=== PATIENT | male | born 1970 | race Caucasian/White ===

== ENCOUNTER 2020-04-11 08:51 | Inpatient (IN) ==
[2020-04-11 09:26] LABS: ABS Lymphocytes 0.6 10^3/ul (1.0-4.8); ABS Monocytes 0.5 10^3/ul (0-0.8); ABS Neutrophils 9.7 10^3/ul (1.5-7.7); Eosinophil % 0.1 %; Hematocrit 27 % (42-52); Hemoglobin 9.2 g/dL (14.0-18.0); Lymphocyte % 5.7 %; Mean Corpuscular HGB Conc 34 g/dL (31-36); Mean Corpuscular Hemoglobin 29 pg (27-31); Mean Corpuscular Volume 85 fL (80-94); Mean Platelet Volume 6.7 fL (7.4-10.4); Platelet Count 426 10^3/uL (150-450); Red Cell Distribution Width 17 % (10-15); White Blood Count 10.8 10^3/uL (3.5-10.8)
[2020-04-11 09:42] LABS: Albumin/Globulin Ratio 0.9 (1-3); BUN/Creatinine Ratio 14.7 (8-20); EGFR African American 93.9 (>60); EGFR Non-African American 77.6 (>60); Globulin 3.3 g/dL (2-4); Potassium 3.9 mmol/L (3.5-5.0); Total Bilirubin 0.2 mg/dL (0.2-1.0); Total Protein 6.3 g/dL (6.4-8.9)
[2020-04-11 09:51] LABS: Urine Appearance Clear; Urine Bilirubin Negative (Negative); Urine Blood Negative (Negative); Urine Color Colorless; Urine Glucose 1+(50 mg/dL) (Negative); Urine Ketones Trace (Negative); Urine Nitrite Negative (Negative); Urine Protein Negative (Negative); Urine Specific Gravity 1.004 (1.010-1.030); Urine Urobilinogen Negative (Negative)
[2020-04-11] MEDS ORDERED: Zosyn per Pharmacy NOTE FOLLOW UP SCH (11:00)
[2020-04-11 11:14] LABS: Erythrocyte Sed Rate > 120 mm/Hr (0-14)
[2020-04-11] MEDS ORDERED: Piperacillin/Tazobac ADVAN 3.375 GM in NS 0.9% 100 ml BAG 100 ML IV ONE (12:00)
[2020-04-11 12:35] LABS: Activated Partial Thrombo Time 28.8 seconds (26.0-38.0); INR 1.01 (0.82-1.09)
[2020-04-11] MEDS ORDERED: Senna TAB 8.6 mg TAB PO PRN (14:59)
[2020-04-11] MEDS: ZOSYN 3.375 GM Q8H per EXTENDED INFUSION IV SCH (16:03)
[2020-04-11] MEDS: Enoxaparin 40 MG/0.4 ML SYR SUBCUT SCH (16:03)
[2020-04-11] MEDS ORDERED: Gadoteridol (CONTRAST) 279.3 MG/ML 10 ML IV ONE (17:48)
[2020-04-11] MEDS ORDERED: NS 0.9% 500 ml BAG 500 ML IV ONE (18:31)
[2020-04-11] MEDS: NS 0.9% 1000 ml BAG 1,000 ML IV SCH ×2 (18:37→21:35)
[2020-04-11] MEDS ORDERED: Thiamine 100 MG/ML 2 ml VIAL (200 mg) IV SCH (19:00)
[2020-04-11] MEDS: Thiamine IV 100 MG in NS 0.9% 50 ML Q24H IV SCH ×2 (21:40→23:54)
[2020-04-12] MEDS: ZOSYN 3.375 GM Q8H per EXTENDED INFUSION IV SCH ×3 (00:01→16:42)
[2020-04-12] MEDS: Thiamine IV 100 MG in NS 0.9% 50 ML Q24H IV SCH ×2 (03:53→08:58)
[2020-04-12 06:14] LABS: ABS Lymphocytes 0.3 10^3/ul (1.0-4.8); ABS Monocytes 0.2 10^3/ul (0-0.8); ABS Neutrophils 7.7 10^3/ul (1.5-7.7); Eosinophil % 0.1 %; Hematocrit 26 % (42-52); Hemoglobin 8.9 g/dL (14.0-18.0); Lymphocyte % 4.2 %; Mean Corpuscular HGB Conc 34 g/dL (31-36); Mean Corpuscular Hemoglobin 29 pg (27-31); Mean Corpuscular Volume 85 fL (80-94); Mean Platelet Volume 6.9 fL (7.4-10.4); Platelet Count 443 10^3/uL (150-450); Red Blood Count 3.11 10^6 /uL (4.18-5.48); Red Cell Distribution Width 17 % (10-15); White Blood Count 8.3 10^3/uL (3.5-10.8)
[2020-04-12 06:25] LABS: BUN/Creatinine Ratio 17.7 (8-20); Calcium 8.7 mg/dL (8.6-10.3); EGFR African American 83.5 (>60); Globulin 3.1 g/dL (2-4); Potassium 4.2 mmol/L (3.5-5.0); Total Bilirubin 0.5 mg/dL (0.2-1.0); Total Protein 6.1 g/dL (6.4-8.9)
[2020-04-12] MEDS: NS 0.9% 1000 ml BAG 1,000 ML IV SCH (11:44)
[2020-04-12] MEDS ORDERED: Polyethylene Glycol 3350 17 GM PACKET PO PRN (15:21)
[2020-04-12] MEDS: Enoxaparin 40 MG/0.4 ML SYR SUBCUT SCH (16:42)
[2020-04-12] MEDS: levETIRAcetam 500 MG IVPREMIX 500 MG/100 ML BAG IVPB SCH (21:35)
[2020-04-12] MEDS: Senna TAB 8.6 mg TAB PO SCH (21:35)
[2020-04-13] MEDS: ZOSYN 3.375 GM Q8H per EXTENDED INFUSION IV SCH ×2 (00:04→07:33)
[2020-04-13] MEDS: NS 0.9% 1000 ml BAG 1,000 ML IV SCH (00:10)
[2020-04-13] MEDS: Senna TAB 8.6 mg TAB PO SCH (07:42)
[2020-04-13 07:50] VITALS: BP 118/70
[2020-04-13] MEDS ORDERED: DULoxetine DR 20 mg CAP PO SCH (09:00)
[2020-04-13] MEDS: levETIRAcetam 500 MG IVPREMIX 500 MG/100 ML BAG IVPB SCH (09:11)
== END 2020-04-13 11:22 | disposition home or self-care (01) | DRG 92 ==
LOC: CHOA 08:51 → MED 11:20
PROVIDERS: ADMIT Registered Nurse Oncology; ATTEND Internal Medicine Hematology & Oncology